=== PATIENT | male | born 1965 | race African-American/Black ===

== ENCOUNTER 2018-01-16 09:26 | Outpatient (CLI) | payer BC ==
--- NOTE | 2018-01-16 12:30 | CT ---
CT ABDOMEN AND PELVIS: 01/16/2018 HISTORY: Right lower abdominal pain. Right lower pelvic pain. Evaluate for inguinal hernia. COMPARISON: None. TECHNIQUE: Serial axial CT imaging at 5 mm intervals, from the lung base to the pubic symphysis, with intravenou s and oral contrast. Coronal reformatted imaging obtained. FINDINGS: The imaged lung bases are unremarkable. There is no free intraperitoneal air or fluid seen. There is a tiny, fat-containing umbilical hernia present. The liver, gallbladder, spleen, pancreas, adrenal glands, and kidneys appear grossly unremarkable. Small bilateral hydroceles are incidentally noted. The appendix appears unremarkable. No focal area of bowel inflammatory change or bowel obstruction. There is mild wall prominence of the colon in the region of the splenic flexure; however, the colon i s fully decompressed in this region and, thus, under-distention is favored over true wall thickening. Clinical correlation is required. There is no evidence for an inguinal hernia on either side. Vascular structures appear patent. No lymphadenopathy is seen within the abdomen or pelvis. The osseous structures of the abdomen and pelvis demonstrate no acute findings. IMPRESSION: 1. Under-distention of the colon in the region of the splenic flexure versus mild wall thickening. 2. Small bilateral hydroceles. 3. No significant inguinal hernia noted on either side. 4. No free intraperitoneal air or evidence of bowel obstruction. POS: [facility]
== END 2018-01-16 09:27 | disposition home or self-care (01) ==
LOC: SCSCT 09:26
PROVIDERS: ATTEND Family Medicine
DX: K40.90 Unilateral inguinal hernia, without obstruction or gangrene, not specified as recurrent (principal); N43.3 Hydrocele, unspecified
CPT/HCPCS: 74177

== ENCOUNTER 2023-09-28 13:02 | Outpatient (CLI) | payer BC | END 2023-09-28 13:03 | disposition home or self-care (01) | LOC: SCSMRI 13:02 | PROVIDERS: ATTEND Family Medicine | DX: M77.11 Lateral epicondylitis, right elbow (principal); M25.521 Pain in right elbow; G56.11 Other lesions of median nerve, right upper limb; M25.721 Osteophyte, right elbow; S56.511A Strain of other extensor muscle, fascia and tendon at forearm level, right arm, initial encounter; S53.31XA Traumatic rupture of right ulnar collateral ligament, initial encounter; M67.823 Other specified disorders of tendon, right elbow ==

== ENCOUNTER 2024-05-20 08:05 | Outpatient (CLI) | payer BC | END 2024-05-20 08:06 | disposition home or self-care (01) | LOC: SCSMRI 08:05 | PROVIDERS: ATTEND Family Medicine | DX: M25.551 Pain in right hip (principal); S73.101A Unspecified sprain of right hip, initial encounter; M24.151 Other articular cartilage disorders, right hip ==